=== PATIENT | male | born 1985 | race Caucasian/White ===

== ENCOUNTER 2018-04-15 12:05 | Emergency (ER) | payer OTHER, BC ==
[2018-04-15 12:36] VITALS: BP 128/64
[2018-04-15] MEDS ORDERED: NAPROXEN 250 MG TABLET PO STA (13:31)
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
== END 2018-04-15 13:49 | disposition home or self-care (01) ==
LOC: ED 12:05
DX: S16.1XXA Strain of muscle, fascia and tendon at neck level, initial encounter (principal); V89.2XXA Person injured in unspecified motor-vehicle accident, traffic, initial encounter; Y92.410 Unspecified street and highway as the place of occurrence of the external cause
CPT/HCPCS: 99283; A9270